=== PATIENT | male | born 1995 | race African-American/Black ===

== ENCOUNTER 2017-08-29 13:34 | Emergency (ER) | payer BC ==
[~2017-08-29] VITALS: Ht 185.4 cm; Wt 71.4 kg
[2017-08-29 13:41] VITALS: TEMP 98.9
[2017-08-29 14:23] LABS: COLLECTION METHOD CLEAN CATCH
[2017-08-29 14:31] LABS: MUCOUS Present /lpf; PH 5 (5-8); SQUAMOUS EPITHELIAL None Seen /hpf; URINE APPEARANCE Clear; URINE BACTERIA Rare /hpf; URINE BILIRUBIN Negative (NEGATIVE); URINE BLOOD Negative (NEGATIVE); URINE COLOR Yellow; URINE GLUCOSE Negative (NEGATIVE); URINE KETONE 1+ (NEGATIVE); URINE LEUKOCYTE ESTERASE Negative (NEGATIVE); URINE PROTEIN(semi-quant) 1+ (NEGATIVE); URINE UROBILINOGEN Negative (NEGATIVE)
[2017-08-29 14:39] LABS: BASO % 0.8 % (0.0-2.0); EOS # 0.1 (0.0-0.7); EOS % 2.4 % (0-4.0); GRAN # 2.2 (1.4-6.5); GRAN % 57.1 % (42.2-75.2); LYMPH # 1.1 (1.2-3.4); LYMPH % 28.9 % (20.0-51.0); MEAN CELL VOLUME 84 fl (80.0-95.0); MEAN CORPUSCULAR HGB CONC 35 g/dl (33.0-37.0); MONO # 0.4 (0.1-0.6); MONO % 10.5 % (1.7-9.3); PLATELET COUNT 172 K/mm3 (130-400); WHITE BLOOD COUNT 3.8 K/mm3 (4.8-10.8)
[2017-08-29 14:45] LABS: HEMATOCRIT 53.2 % (36.0-47.0); HEMOGLOBIN 18.5 g/dl (12.5-16.1); MEAN CORPUSCULAR HEMOGLOBIN 29 pg (26.0-32.0)
[2017-08-29 14:51] LABS: ADJUSTED CALCIUM 9.2 mg/dL (8.4-10.2); ALBUMIN 4.8 gm/dL (3.5-5.0); BILIRUBIN,TOTAL 0.8 mg/dL (0.0-1.0); C-REACTIVE PROTEIN 1.9 mg/dL (0.0-0.9); CALCIUM 9.8 mg/dL (8.4-10.2); CREATININE, serum 1.4 mg/dL (0.66-1.25); POTASSIUM 3.6 mmol/L (3.4-5.0); TOTAL PROTEIN 7.7 gm/dL (6.4-8.2)
[2017-08-29] MEDS ORDERED: BACTRIM DS 8001 TAB PO (16:07)
[2017-08-29 17:08] VITALS: BP 106/63; PULSE 65
== END 2017-08-29 17:20 | disposition home or self-care (01) ==
LOC: COL.ER 13:34
PROVIDERS: Nurse Practitioner
DX: E86.0 Dehydration (principal); N39.0 Urinary tract infection, site not specified; F32.9 Major depressive disorder, single episode, unspecified; F90.9 Attention-deficit hyperactivity disorder, unspecified type
CPT/HCPCS: J0696; J2405; J3010; J7030; J7050; Q9967

== ENCOUNTER 2017-09-01 14:57 | Emergency (ER) | payer BC ==
[~2017-09-01] VITALS: Ht 185.4 cm; Wt 72.7 kg
[~2017-09-01 14:57] MED LIST: BACTRIM DS 8001 TAB PO
[2017-09-01 15:01] VITALS: TEMP 98.9
[2017-09-01 16:21] LABS: BASO % 0.6 % (0.0-2.0); EOS # 0.2 (0.0-0.7); EOS % 4.8 % (0-4.0); GRAN # 0.8 (1.4-6.5); GRAN % 26.4 % (42.2-75.2); HEMATOCRIT 44.9 % (36.0-47.0); HEMOGLOBIN 15.4 g/dl (12.5-16.1); LYMPH # 1.6 (1.2-3.4); LYMPH % 51.1 % (20.0-51.0); MEAN CELL VOLUME 84 fl (80.0-95.0); MEAN CORPUSCULAR HEMOGLOBIN 29 pg (26.0-32.0); MEAN CORPUSCULAR HGB CONC 34 g/dl (33.0-37.0); MEAN PLATELET VOLUME 8.7 fl (7.4-10.4); MONO # 0.5 (0.1-0.6); MONO % 17.1 % (1.7-9.3); PLATELET COUNT 158 K/mm3 (130-400); RED BLOOD COUNT 5.34 M/mm3 (4.20-5.60); WHITE BLOOD COUNT 3.2 K/mm3 (4.8-10.8)
[2017-09-01 16:36] LABS: ADJUSTED CALCIUM 9.1 mg/dL (8.4-10.2); ALBUMIN 3.8 gm/dL (3.5-5.0); BILIRUBIN,TOTAL 0.7 mg/dL (0.0-1.0); C-REACTIVE PROTEIN 1.6 mg/dL (0.0-0.9); CALCIUM 8.9 mg/dL (8.4-10.2); CREATININE, serum 1.21 mg/dL (0.66-1.25); POTASSIUM 3.8 mmol/L (3.4-5.0); TOTAL PROTEIN 6.5 gm/dL (6.4-8.2)
[2017-09-01 17:04] LABS: COLLECTION METHOD CLEAN CATCH
[2017-09-01 17:10] LABS: MUCOUS Present /lpf; PH 5 (5-8); SQUAMOUS EPITHELIAL None Seen /hpf; URINE APPEARANCE Clear; URINE BACTERIA None Seen /hpf; URINE BILIRUBIN Negative (NEGATIVE); URINE BLOOD Negative (NEGATIVE); URINE COLOR Yellow; URINE GLUCOSE Negative (NEGATIVE); URINE KETONE 1+ (NEGATIVE); URINE LEUKOCYTE ESTERASE Negative (NEGATIVE); URINE PROTEIN(semi-quant) 1+ (NEGATIVE); URINE RBC 0-2 /hpf
[2017-09-01 17:51] VITALS: BP 114/70; PULSE 84
== END 2017-09-01 17:52 | disposition home or self-care (01) ==
LOC: COL.ER 14:57
PROVIDERS: Emergency Medicine
DX: R10.9 Unspecified abdominal pain (principal); R19.7 Diarrhea, unspecified
CPT/HCPCS: J2270; J2405; J7030

== ENCOUNTER 2018-06-17 15:24 | Emergency (ER) | payer BC ==
[2018-06-17 15:26] VITALS: TEMP 99.3
[2018-06-17 16:02] LABS: BASO % 0.6 % (0.0-2.0); EOS # 0.1 (0.0-0.7); EOS % 1.9 % (0-4.0); GRAN # 2.7 (1.4-6.5); GRAN % 58.6 % (42.2-75.2); HEMATOCRIT 28.9 % (36.0-47.0); HEMOGLOBIN 9.5 g/dl (12.5-16.1); LYMPH # 1.4 (1.2-3.4); LYMPH % 30.3 % (20.0-51.0); MEAN CELL VOLUME 91 fl (80.0-95.0); MEAN CORPUSCULAR HEMOGLOBIN 30 pg (26.0-32.0); MEAN CORPUSCULAR HGB CONC 33 g/dl (33.0-37.0); MEAN PLATELET VOLUME 8.7 fl (7.4-10.4); MONO # 0.4 (0.1-0.6); MONO % 8.4 % (1.7-9.3); PLATELET COUNT 181 K/mm3 (130-400); RED BLOOD COUNT 3.17 M/mm3 (4.20-5.60); REDCELL DISTRIBUTION WIDTH-CV 13.5 % (11.5-14.5)
[2018-06-17 16:21] LABS: ALBUMIN 3.6 gm/dL (3.5-5.0); CALCIUM 8.4 mg/dL (8.4-10.2); CREATININE, serum 0.87 mg/dL (0.66-1.25); POTASSIUM 3.6 mmol/L (3.4-5.0); TOTAL PROTEIN 6.1 gm/dL (6.4-8.2)
[2018-06-17] MEDS ORDERED: NORCO 325 MG-51 TAB PO (17:28)
[2018-06-17] MEDS ORDERED: FLEXERIL 1010 MG/TAB PO (17:28)
[2018-06-17 17:47] VITALS: BP 122/75; PULSE 55
== END 2018-06-17 17:49 | disposition home or self-care (01) ==
LOC: COL.ER 15:24
PROVIDERS: Emergency Medicine
DX: S13.4XXA Sprain of ligaments of cervical spine, initial encounter (principal); S33.9XXA Sprain of unspecified parts of lumbar spine and pelvis, initial encounter; S93.402A Sprain of unspecified ligament of left ankle, initial encounter; K58.9 Irritable bowel syndrome, unspecified; V49.9XXA Car occupant (driver) (passenger) injured in unspecified traffic accident, initial encounter
CPT/HCPCS: J7030; Q9967

== ENCOUNTER 2018-06-28 16:45 | Emergency (ER) | payer BC ==
[~2018-06-28] VITALS: Ht 185.4 cm; Wt 70.5 kg
[~2018-06-28 16:45] MED LIST changes: +FLEXERIL 1010 MG/TAB PO; +NORCO 325 MG-51 TAB PO
[2018-06-28 16:49] VITALS: TEMP 99
[2018-06-28] MEDS ORDERED: CELEXA10 MG PO (17:16)
[2018-06-28 18:08] LABS: BASO % 0.7 % (0.0-2.0); EOS # 0.1 (0.0-0.7); EOS % 1.8 % (0-4.0); GRAN # 3.6 (1.4-6.5); GRAN % 59.3 % (42.2-75.2); HEMOGLOBIN 11.4 g/dl (13.5-18.0); LYMPH # 1.8 (1.2-3.4); LYMPH % 29.7 % (20.0-51.0); MEAN CELL VOLUME 91 fl (80.0-100.0); MEAN CORPUSCULAR HEMOGLOBIN 30 pg (27.0-31.0); MEAN CORPUSCULAR HGB CONC 33 g/dl (33.0-37.0); MEAN PLATELET VOLUME 8.7 fl (7.4-10.4); MONO # 0.5 (0.1-0.6); MONO % 8.3 % (1.7-9.3); PLATELET COUNT 216 K/mm3 (130-400); RED BLOOD COUNT 3.84 M/mm3 (4.20-5.60); REDCELL DISTRIBUTION WIDTH-CV 13.2 % (11.5-14.5)
[2018-06-28 18:09] LABS: HEMATOCRIT 35.1 % (42.0-52.0)
[2018-06-28 18:23] LABS: ALANINE AMINOTRANSFERASE 33 U/L (21-72); ALKALINE PHOSPHATASE 53 U/L (50-136); ANION GAP 10 mmol/L (7-16); AST,SGOT 16 U/L (15-37); BILIRUBIN,TOTAL 0.3 mg/dL (0.0-1.0); BLOOD UREA NITROGEN 16 mg/dL (9-20); CALCIUM 9.2 mg/dL (8.4-10.2); CARBON DIOXIDE 30 mmol/L (22-30); CHLORIDE 102 mmol/L (98-107); CREATININE, serum 0.93 mg/dL (0.66-1.25); GLUCOSE 85 mg/dL (74-106); POTASSIUM 4.3 mmol/L (3.4-5.0); SODIUM 142 mmol/L (137-145); TOTAL PROTEIN 6.7 gm/dL (6.4-8.2)
[2018-06-28 18:38] LABS: ACETAMINOPHEN < 10 ug/mL (10-30); ALCOHOL(ethanol),MEDICAL < 10 mg/dL; SALICYLATE < 1.0 mg/dL
[2018-06-28 18:54] LABS: TRICYCLIC ANTIDEPRESS URINE NEGATIVE
[2018-06-28 22:05] VITALS: BP 103/54; PULSE 58
== END 2018-06-28 22:05 | disposition home or self-care (01) ==
LOC: COL.ER 16:45
PROVIDERS: Emergency Medicine
DX: R45.851 Suicidal ideations (principal); F32.9 Major depressive disorder, single episode, unspecified

== ENCOUNTER 2018-12-26 01:48 | Emergency (ER) | payer BC ==
[~2018-12-26] VITALS: Ht 185.4 cm; Wt 81.8 kg
[~2018-12-26 01:48] MED LIST changes: +CELEXA10 MG PO
[2018-12-26 01:51] VITALS: BP 129/75; PULSE 57; TEMP 98.7
== END 2018-12-26 03:48 | disposition left against medical advice (07) ==
LOC: COL.ER 01:48
DX: R20.0 Anesthesia of skin (principal)